=== PATIENT | female | born 2000 | race Caucasian/White ===

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

== ENCOUNTER 2018-01-11 17:19 | Emergency (ER) | payer OTHER ==
[~2018-01-11] VITALS: Ht 167.6 cm; Wt 82.0 kg
[2018-01-11 17:37] VITALS: TEMP 36.7; Ht 167.6 cm; Wt 82.0 kg
[2018-01-11] MEDS ORDERED: ACETAMINOPHEN 500 MG TAB PO STA (18:50)
[2018-01-11 18:59] VITALS: BP 133/81; PULSE 84; O2SAT 95
--- NOTE | 2018-01-11 20:28 | EMERGENCY ROOM VISIT NOTE ---
History First contact with patient: 17:42 Chief Complaint: THROAT PAIN/INJURY Stated Complaint: SWOLLEN TONSILS, TROUBLE BREATHING History of Present Illness The patient is a 17 year old female who presents to the Emergency Room with complaints of a sore throat. The patient reports that her symptoms started 2 days ago. She denies any other symptoms such as runny nose, congestion or cough. She does report discomfort in her right ear, extending into the neck. She has not noticed any popping in her ears. The patient reports difficulty sleeping because of the throat swelling. The patient reports that she was treated for strep throat in October, having a positive rapid strep test. The patient reports that she has had a history of recurrent tonsillitis. She has not discussed this with ENT. The patient denies any other significant symptoms such as abdominal pain, diarrhea, urinary symptoms, fevers or chills. She rates her discomfort a 6 out of 10. She has not taken any medicine today for her discomfort. Review of Systems 10 system review was performed and was negative except for pertinent positives and negatives as indicated in history of present illness Past Medical/Surgical History Medical Problems: (1) Recurrent tonsillitis Surgical Problems: (1) No history of previous surgery Family History No significant family history Social History Smoking Status: Never Smoker Alcohol Use: none Drug Use: none Marital Status: single Occupation Status: [employer] student Current/Historical Medications Unable to Obtain Active Prescriptions or Reported Meds Physical Exam Vital Signs Date Time Temp Pulse Resp B/P (MAP) Pulse Ox O2 Delivery O2 Flow Rate FiO2 01/11/18 18:59 84 16 133/81 95 01/11/18 18:55 84 16 133/81 95 Room Air 01/11/18 17:40 97 Room Air 01/11/18 17:37 36.7 63 20 131/85 97 Room Air Physical Exam CONSTITUTIONAL: Healthy and well nourished. Alert and oriented X 3 with positive affect. Patient does not appear in any acute distress. HEENT: Normocephalic, atraumatic. Pupils equal, round and reactive. Examination of the right ear shows cerumen impaction. No obvious external auditory canal erythema or edema noted. Examination of the left ear does not show any middle ear effusion or air-fluid levels. No rhinorrhea noted. No conjunctival injection or scleral icterus. OROPHARYNX: Patient has symmetric bilateral tonsillar hypertrophy with exudates. Uvula is midline. Negative trismus. No evidence for Jose's angina or retropharyngeal abscess. NECK: Full active range of motion without discomfort. No nuchal rigidity or fullness to palpation. LYMPHATICS: No posterior or anterior cervical chain adenopathy. RESPIRATORY: Clear to auscultation bilaterally with no wheezing, crackles, rhonchi or stridor. CARDIOVASCULAR: Regular rate and rhythm with no murmurs, rubs or gallops. GASTROINTESTINAL: Bowel sounds present in all quadrants. Soft and nontender to palpation without any obvious hepatosplenomegaly. MUSCULOSKELETAL: Full range of motion of all joints without discomfort. INTEGUMENTARY: No rash or other significant dermatologic conditions noted. NEUROLOGIC: Facial sensations are intact. Medical Decision & Procedures Laboratory Results Rapid strep was performed and was negative. Strep cultures were ordered and are currently pending. Medications Administered Medications (Trade) Dose Ordered Sig/Alexus Route Start Time Stop Time Status Last Admin Dose Admin Acetaminophen (Tylenol Tab) 1,000 mg NOW STAT PO 01/11/18 18:50 01/11/18 18:51 DC 01/11/18 18:58 1,000 MG ED Course Patient history and physical exam were performed. Nurse's notes were reviewed. Vital signs were reviewed and were normal. The patient was administered Tylenol 1 g for pain. Rapid strep test was negative. The patient was advised that her symptoms are likely secondary to a viral infection. We will call her with any positive strep cultures. I also explained that if she has any persistent sore throat, fatigue or weakness that is not improving within the next 10-14 days, she should follow-up with her PCP for a mono screen. She was instructed to alternate ibuprofen and Tylenol for pain. A sore throat handout was provided. She was instructed to return to the emergency department for any progressively worsening tonsillar swelling, persistent fever or other concerns. The patient was happy with plan of care, voiced understanding of all discharge instructions, and rated her discomfort a 4 out of 10 at the conclusion of my exam. Medical Decision Medication Reconcilliation Current Medication List: was personally reviewed by me Blood Pressure Screening Patient's blood pressure: Normal blood pressure Impression Primary Impression: Acute pharyngitis Departure Information Dispostion Home / Self-Care Condition GOOD Prescriptions Unable to Obtain Active Prescriptions or Reported Meds Forms HOME CARE DOCUMENTATION FORM, IMPORTANT VISIT INFORMATION Patient Instructions Sore Throats Self Care, My [facility] [address] Additional Instructions Read sore throat handout. We will contact you in 48-72 hours with any positive strep cultures. Ibuprofen 800 mg and/or Tylenol 1000 mg every 8 hours. You may also alternate these medications for more effective pain relief: Ibuprofen --4 HRS--> Tylenol --4 HRS--> ibuprofen --4 HRS--> Tylenol .... Return to the ER for any progressively worsening symptoms. Suggest follow-up with your family doctor if symptoms are not improving within the next 1-2 weeks. Also suggest follow-up with an ENT doctor to discuss possibly removing the tonsils. Problem Qualifiers Primary Impression: Acute pharyngitis Pharyngitis/tonsillitis etiology: unspecified etiology Qualified Codes: J02.9 - Acute pharyngitis, unspecified
--- NOTE | 2018-01-13 15:16 | Pharmacy Progress Note ---
ED Pharmacist Culture FollowUp Date of Service: Jan 13, 2018. Back-up GAS cx is growing GAS, rare quantity. Patient ad presented w/ c/o sore throat x 2 days, congestion, cough and R ear discomfort. She has a h/o recurrent tonsillitis, recently dx with GAS pharyngitis and given ABX in Oct. Reviewed cx results w/ B [place] PAC, patient will be placed on Amoxil 500mg PO BID x 10 days. Contacted pt and explained the results of cx and plan to place her on ABX. She requested Rx be called to [facility] Leopoldo Garcia ([phone]) which I did do for her.
== END 2018-01-11 18:59 | disposition home or self-care (01) ==
LOC: C.EDB 17:21 → C.EDD 18:59
DX: J02.9 Acute pharyngitis, unspecified (principal)